=== PATIENT | female | born 1990 ===

== ENCOUNTER 2022-05-28 14:54 | Emergency (ER) | payer BC ==
[~2022-05-28] VITALS: Ht 149.9 cm; Wt 49.0 kg
[~2022-05-28 14:54] MED LIST: CIPRO500 MG PO; FLAGYL500MG PO; INTESTINEX680 MG PO; ZANTAC150 MG PO
[2022-05-28] MEDS ORDERED: METRONIDAZOLE500 MG PO ×2 (22:05→22:26)
== END 2022-05-28 22:52 | disposition home or self-care (01) ==
LOC: ER 14:54
DX: U07.1 COVID-19 (principal); K52.89 Other specified noninfective gastroenteritis and colitis